=== PATIENT | male | born 1975 | race Caucasian/White ===

== ENCOUNTER 2017-09-18 05:35 | Emergency (ER) | payer OTHER ==
[2017-09-18] MEDS ORDERED: KETOROLAC 30 MG/ML INJ ONE (05:49)
[2017-09-18] MEDS ORDERED: ONDANSETRON 4 MG/2 ML VIAL ONE ×2 (05:51→07:51)
[2017-09-18 06:09] LABS: Urine Blood 2+ (NEG); Urine Glucose TRACE (NEG); Urine Protein 2+ (NEG); Urine Specific Gravity >1.030 (1.005-1.030)
[2017-09-18 06:17] LABS: Potassium 3.1 mEq/L (3.6-5.0)
[2017-09-18 06:22] LABS: Albumin 4.4 g/dL (3.2-5.5); Bilirubin Total 0.8 mg/dL (0.3-1.2); Protein, Total 7.6 g/dL (6.0-8.3)
[2017-09-18 06:24] LABS: Absolute Lymphocytes (CBC) 3.3 K/uL (0.7-4.9); Absolute Monocytes 0.6 K/uL (0.1-1.3); Absolute Neutrophil 5.2 K/uL (1.8-8.0); Basophils % 1.1 % (0-1.3); Eosinophils % 2.8 % (0-4.4); Hematocrit 47.8 % (39.6-49.0); Lymphocytes % 34.9 % (15.3-44.8); MCH 30.3 pg (27.0-35.0); MCV 89.2 fL (80-100); MPV 8.9 fL (7.6-11.3); Monocytes % 6.8 % (3.3-12.3); RBC Red Blood Cell Count 5.36 M/uL (4.33-5.43)
[2017-09-18 06:28] LABS: Urine Bacteria <20 /HPF (NONE SEEN); Urine Culture Reflex Order NOT NEEDED; Urine Mucus HEAVY /HPF (NONE SEEN); Urine RBC <5 /HPF (NONE SEEN)
--- NOTE | 2017-09-18 07:22 | RAD REPORT ---
EXAM DESCRIPTION: CT - Stone Protocol - 09/18/2017 6:57 am CLINICAL HISTORY: Abdominal pain. Right flank pain COMPARISON: None. TECHNIQUE: Computed axial tomography of the abdomen pelvis was obtained without oral or IV contrast. Lack of IV and oral contrast limits evaluation of solid organs, bowel, and vessels. Coronal reformat adam images were obtained and reviewed. All CT scans are performed using dose optimization technique as appropriate and may include automated exposure control or mA/KV adjustment according to patient size. FINDINGS: A renal calculus is not seen. Mild right hydronephrosis is present. The right ureter is di lated. A 3.5 millimeter calculus is present at the right ureterovesical junction Hounsfield unit 615 The liver, spleen, pancreas and adrenals appear grossly normal There is no evidence of diverticulitis. The appendix appears normal Small inguinal hernias contain fat IMPRESSION: 3.5 millimeter calculus right ureterovesical junction resulting in mild right hydronephr osis
[2017-09-18] MEDS ORDERED: MORPHINE 4 MG/ML SYR ONE (07:47)
[2017-09-18] MEDS ORDERED: NA CHLORIDE 0.9% 1,000 ML ONE (07:49)
[2017-09-18] MEDS ORDERED: TAMSULOSIN 0.4 MG SR CAP ONE (09:42)
--- NOTE | 2017-09-18 09:47 | EDPHYS ---
Physician Documentation [facility] Name: Zachery Iqbal Age: 42 yrs Sex: Male : 1975 Arrival Date: 09/18/2017 Time: 05:40 Bed 6 Private MD: None, None ED Physician Gomez Hwang HPI: 09/18 05:41 This 42 yrs old Male presents to ER via Unassigned with complaints of flank ps1 pain. 05:41 right sided flank pain without radiation. In from out of town in [place]. Pain with ps1 ambulation and movement. Pain rated moderate. No history of stones. No fever. . Historical: - Allergies: 05:43 No Known Allergies; ao - Home Meds: 05:43 None [Active]; ao - PMHx: 05:43 None; ao - PSHx: 05:43 None; ao - Immunization history:: Adult Immunizations up to date. - Social history:: Smoking status: Patient uses tobacco products, smokes one pack cigarettes per day. Patient/guardian denies using alcohol, street drugs. - Ebola Screening: : Patient negative for fever greater than or equal to 101.5 degrees Fahrenheit, and additional compatible Ebola Virus Disease symptoms Patient denies exposure to infectious person Patient denies travel to an Ebola-affected area in the 21 days before illness onset. ROS: 05:41 Constitutional: Negative for fever, chills, and weight loss, Eyes: Negative for injury, ps1 pain, redness, and discharge, Cardiovascular: Negative for chest pain, palpitations, and edema, Respiratory: Negative for shortness of breath, cough, wheezing, and pleuritic chest pain. 05:41 Abdomen/GI: Positive for flank pain. 05:41 : Positive for urinary symptoms, flank pain, urinary frequency. Exam: 05:41 Constitutional: This is a well developed, well nourished patient who is awake, alert, ps1 and in no acute distress. Head/Face: Normocephalic, atraumatic. Chest/axilla: Normal chest wall appearance and motion. Nontender with no deformity. No lesions are appreciated. Cardiovascular: Regular rate and rhythm. No gallops, murmurs, or rubs. Normal PMI, no JVD. No pulse deficits. Respiratory: Lungs have equal breath sounds bilaterally, clear to auscultation and percussion. No rales, rhonchi or wheezes noted. No increased work of breathing, no retractions or nasal flaring. Abdomen/GI: Soft, non-tender, with normal bowel sounds. No distension or tympany. No guarding or rebound. No evidence of tenderness throughout. Back: No spinal tenderness. No costovertebral tenderness. Full range of motion. MS/ Extremity: Pulses equal, no cyanosis. Neurovascular intact. Full, normal range of motion. Neuro: Awake and alert, GCS 15, oriented to person, place, time, and situation. Cranial nerves II-XII grossly intact. Sensory grossly intact. Psych: Awake, alert, with orientation to person, place and time. Behavior, mood, and affect are within normal limits. Vital Signs: 05:44 BP 164 / 95; Pulse 76; Resp 20; Temp 97.2; Pulse Ox 98% on R/A; Weight 86.18 kg (R); ao Height 5 ft. 6 in. (167.64 cm) (R); Pain 9/10; 07:28 BP 144 / 92; Pulse 58; Resp 17; Pulse Ox 100% on R/A; ae1 09:40 BP 154 / 97; Pulse 71; Resp 17; Pulse Ox 97% on R/A; tw2 05:44 Body Mass Index 30.67 (86.18 kg, 167.64 cm) ao MDM: 05:45 Patient medically screened. ps1 07:46 Data reviewed: vital signs, nurses notes, lab test result(s), radiologic studies. kdr Counseling: I had a detailed discussion with the patient and/or guardian regarding: the historical points, exam findings, and any diagnostic results supporting the discharge/admit diagnosis, lab results, radiology results. 07:55 ED course: The patient continues to have recurrent pain. Had Toradol previously but now kdr pain now. 09/18 05:44 Order name: CBC with Diff; Complete Time: 06:53 ps1 09/18 05:44 Order name: Creatinine for Radiology; Complete Time: 06:19 ps1 09/18 05:44 Order name: Lipase; Complete Time: 06:53 ps1 09/18 05:44 Order name: Urine Microscopic Only; Complete Time: 06:53 ps1 09/18 05:44 Order name: CMP; Complete Time: 06:53 ps1 09/18 06:03 Order name: Urine Dipstick--Ancillary (enter results); Complete Time: 06:10 mt 09/18 06:08 Order name: CT Stone Protocol; Complete Time: 07:26 ps1 09/18 05:44 Order name: IV Saline Lock; Complete Time: 05:54 ps1 09/18 05:44 Order name: Labs collected and sent; Complete Time: 05:54 ps1 09/18 05:44 Order name: Urine Dipstick-Ancillary (obtain specimen); Complete Time: 05:54 ps1 Administered Medications: 05:54 Drug: TORadol 30 mg Route: IVP; Site: right antecubital; ao 07:10 Follow up: Response: No adverse reaction; Pain is decreased ae1 05:54 Drug: Zofran 4 mg Route: IVP; Site: right antecubital; ao 07:10 Follow up: Response: No adverse reaction; Nausea is decreased ae1 07:55 Drug: NS 0.9% 1000 ml Route: IV; Rate: 1 bolus; Site: right antecubital; rv 09:27 Follow up: IV Status: Completed infusion rv 07:55 Drug: morphine 4 mg Route: IVP; Site: right antecubital; rv 08:24 Follow up: Response: No adverse reaction; Nausea is decreased rv 08:54 Follow up: Response: No adverse reaction; Pain is decreased rv 07:55 Drug: Zofran 4 mg Route: IVP; Site: right antecubital; rv 08:24 Follow up: Response: No adverse reaction; Pain is decreased rv 08:54 Follow up: Response: No adverse reaction; Nausea is decreased rv 07:57 Not Given (Duplicate Order): morphine 4 mg IVP once rv 08:23 Not Given (Duplicate Order): Zofran 4 mg IVP once; over 2 minutes rv 08:24 Not Given (Duplicate Order): NS 0.9% 1000 ml IV at 1000 ml once rv 09:44 Drug: Flomax 0.4 mg Route: PO; rv Disposition: 09/18/17 09:46 Discharged to Home. Impression: Dight distal kidney stone. - Condition is Fair. - Discharge Instructions: Kidney Stones, [id number]. - Prescriptions for Tylenol- Codeine #3 300-30 mg Oral Tablet - take 2 tablets by ORAL route every 4-6 hours As needed; 25 tablet. Zofran 4 mg Oral Tablet - take 1 tablet by ORAL route every 4-6 hours As needed; 20 tablet. Flomax 0.4 mg Oral Capsule, Sust. Release 24 hr - take 1 capsule by ORAL route once daily 1/2 hour following the same meal each day; 30 capsule. Bactrim DS 800- 160 mg Oral Tablet - take 1 tablet by ORAL route every 12 hours for 3 days; 6 tablet. - Medication Reconciliation Form, Thank You Letter, Antibiotic Education, Prescription Opioid Use, Work release form form. - Follow up: Private Physician; When: 2 - 3 days; Reason: If symptoms return, Further diagnostic work-up, Recheck today's complaints, Continuance of care, Re-evaluation by your physician. Follow up: Jayla Ray MD; When: 48 Hours; Reason: If symptoms return, Further diagnostic work-up, Recheck today's complaints, Continuance of care, Re-evaluation by your physician. - Problem is new. - Symptoms have improved. Signatures: Dispatcher [employer] [facility] Gomez Hwang MD MD kdr Brennan Burt RN RN ao Stevie Roldan RN RN ae1 Demarcus Ortega MD MD ps1 Jasper Alonso RN RN rv Corrections: (The following items were deleted from the chart) 05:46 05:45 09/18/2017 05:45 Patients has left against medical advice. Impression: Cutaneous ps1 abscess of groin. Patient states they are going to Home. Condition is Fair. Follow up: Private Physician; When: As needed; Reason: Recheck today's complaints, Continuance of care, Re-evaluation by your physician. Follow up: Emergency Department; When: As needed; Reason: Worsening of condition. Problem is new. Symptoms are unchanged. ps1 05:47 05:45 BASIC METABOLIC PANEL+C.LAB.BRZ ordered. [facility] EDTN 10:04 09:46 09/18/2017 09:46 Discharged to Home. Impression: Dight distal kidney stone. rv Condition is Fair. Forms are Medication Reconciliation Form, Thank You Letter, Antibiotic Education, Prescription Opioid Use. Follow up: Private Physician; When: 2 - 3 days; Reason: If symptoms return, Further diagnostic work-up, Recheck today's complaints, Continuance of care, Re-evaluation by your physician. Follow up: Jayla Ray; When: 48 Hours; Reason: If symptoms return, Further diagnostic work-up, Recheck today's complaints, Continuance of care, Re-evaluation by your physician. Problem is new. Symptoms have improved. kdr
--- NOTE | 2017-09-18 09:47 | ER ---
Nurse's Notes [facility] Name: Zachery Iqbal Age: 42 yrs Sex: Male : 1975 Arrival Date: 09/18/2017 Time: 05:40 Bed 6 Private MD: None, None Diagnosis: Dight distal kidney stone Presentation: 09/18 05:41 Presenting complaint: Patient states: "I woke up this morning about 0400 with this pain ao in my right side of the abdomen." Patient denies history of kidney stones. Transition of care: patient was not received from another setting of care. Onset of symptoms was September 18, 2017 at 04:00. Risk Assessment: Do you want to hurt yourself or someone else? Patient reports no desire to harm self or others. Initial Sepsis Screen: Does the patient meet any 2 criteria? No. Patient's initial sepsis screen is negative. Does the patient have a suspected source of infection? No. Patient's initial sepsis screen is negative. Care prior to arrival: None. 05:41 Method Of Arrival: Ambulatory ao 05:41 Acuity: RIGOBERTO 3 ao Triage Assessment: 05:45 General: Appears in no apparent distress. uncomfortable, Behavior is cooperative, ao agitated, anxious. Historical: - Allergies: 05:43 No Known Allergies; ao - Home Meds: 05:43 None [Active]; ao - PMHx: 05:43 None; ao - PSHx: 05:43 None; ao - Immunization history:: Adult Immunizations up to date. - Social history:: Smoking status: Patient uses tobacco products, smokes one pack cigarettes per day. Patient/guardian denies using alcohol, street drugs. - Ebola Screening: : Patient negative for fever greater than or equal to 101.5 degrees Fahrenheit, and additional compatible Ebola Virus Disease symptoms Patient denies exposure to infectious person Patient denies travel to an Ebola-affected area in the 21 days before illness onset. Screenin:49 Abuse screen: Denies threats or abuse. Denies injuries from another. Nutritional ao screening: No deficits noted. Tuberculosis screening: No symptoms or risk factors identified. Fall Risk None identified. Assessment: 05:45 Pain: Complains of pain in right flank Pain does not radiate. Pain currently is 8 out ao of 10 on a pain scale. Neuro: Level of Consciousness is awake, alert, obeys commands, Oriented to person, place, time, situation, Appropriate for age Moves all extremities. Speech is normal, Facial symmetry appears normal. Cardiovascular: Patient's skin is warm and dry. Respiratory: Airway is patent Respiratory effort is even, unlabored, Respiratory pattern is regular, symmetrical. GI: Abdomen is non-distended. : Denies burning with urination, urinary frequency. EENT: No signs and/or symptoms were reported regarding the EENT system. Derm: Skin is intact, Skin is pink, warm \\T\\ dry. Skin temperature is warm. Musculoskeletal: Circulation, motion, and sensation intact. Range of motion:. 06:46 Reassessment: Patient appears in no apparent distress at this time. Patient and/or ao family updated on plan of care and expected duration. Pain level reassessed. Patient is alert, oriented x 3, equal unlabored respirations, skin warm/dry/pink. Called CT to remind that patient has an order for CT. automation technologist stated that he was not aware of this order and will proceed with CT now. Patient pain level recheck to be 6/10 at this moment. Patient states that his pain is better Patient states feeling better. 07:45 Reassessment: Patient reports increased pain, new orders received per provider. ae1 10:02 Reassessment: Patient appears in no apparent distress at this time. Patient and/or rv family updated on plan of care and expected duration. Pain level reassessed. Patient states symptoms have improved. Vital Signs: 05:44 BP 164 / 95; Pulse 76; Resp 20; Temp 97.2; Pulse Ox 98% on R/A; Weight 86.18 kg (R); ao Height 5 ft. 6 in. (167.64 cm) (R); Pain 9/10; 07:28 BP 144 / 92; Pulse 58; Resp 17; Pulse Ox 100% on R/A; ae1 09:40 BP 154 / 97; Pulse 71; Resp 17; Pulse Ox 97% on R/A; tw2 05:44 Body Mass Index 30.67 (86.18 kg, 167.64 cm) ao ED Course: 05:40 Patient arrived in ED. fc 05:41 Brennan Burt, BRIAN is Primary Nurse. ao 05:41 Demarcus Ortega MD is Attending Physician. ps1 05:41 None, None is Private Physician. fc 05:43 Triage completed. ao 05:45 Arm band placed on right wrist. Patient placed in an exam room, Patient notified of ao wait time. 05:55 Inserted saline lock: 20 gauge in right antecubital area, using aseptic technique. ao ,using aseptic technique. By Kelle Blood collected. 06:50 Patient has correct armband on for positive identification. Pulse ox on. NIBP on. ao 06:57 CT Stone Protocol In Process Unspecified. EDMS 07:00 Report given to BRIAN Villasenor. ao 07:04 CT completed. Patient tolerated procedure well. Patient moved to CT via wheelchair. Patient moved back from CT. 07:16 Attending Physician role handed off by Demarcus Ortega MD kdr 07:16 Gomez Hwang MD is Attending Physician. kdr 09:45 Jayla Ray MD is Referral Physician. kdr 10:00 IV discontinued, intact, bleeding controlled, No redness/swelling at site. Pressure rv dressing applied. 10:01 No provider procedures requiring assistance completed. rv Administered Medications: 05:54 Drug: TORadol 30 mg Route: IVP; Site: right antecubital; ao 07:10 Follow up: Response: No adverse reaction; Pain is decreased ae1 05:54 Drug: Zofran 4 mg Route: IVP; Site: right antecubital; ao 07:10 Follow up: Response: No adverse reaction; Nausea is decreased ae1 07:55 Drug: NS 0.9% 1000 ml Route: IV; Rate: 1 bolus; Site: right antecubital; rv 09:27 Follow up: IV Status: Completed infusion rv 07:55 Drug: morphine 4 mg Route: IVP; Site: right antecubital; rv 08:24 Follow up: Response: No adverse reaction; Nausea is decreased rv 08:54 Follow up: Response: No adverse reaction; Pain is decreased rv 07:55 Drug: Zofran 4 mg Route: IVP; Site: right antecubital; rv 08:24 Follow up: Response: No adverse reaction; Pain is decreased rv 08:54 Follow up: Response: No adverse reaction; Nausea is decreased rv 07:57 Not Given (Duplicate Order): morphine 4 mg IVP once rv 08:23 Not Given (Duplicate Order): Zofran 4 mg IVP once; over 2 minutes rv 08:24 Not Given (Duplicate Order): NS 0.9% 1000 ml IV at 1000 ml once rv 09:44 Drug: Flomax 0.4 mg Route: PO; rv Outcome: 09:46 Discharge ordered by . kdr 10:01 Discharged to home ambulatory. rv 10:01 Condition: improved 10:01 Discharge instructions given to patient. 10:04 Patient left the ED. rv Signatures: Dispatcher [employer] EDMS Gomez Hwang MD MD kdr Hagler, Ervin eh Chretien, Felicia, RN RN Brennan Lux, RN RN ao Josephine Ashby RN RN tw2 Stevie Roldan RN RN ae1 Demarcus Ortega MD MD ps1 Jasper Alonso RN RN rv
== END 2017-09-18 10:04 | disposition home or self-care (01) ==
LOC: ER 05:35
DX: N20.0 Calculus of kidney (principal); F17.210 Nicotine dependence, cigarettes, uncomplicated
CPT/HCPCS: 36415; 74176; 76377; 80053; 81003; 81015; 83690; 85025; 96361; 96374; 96375; 99284; J2405; J7030